=== PATIENT | male | born 1975 | race Caucasian/White ===

== ENCOUNTER 2017-02-03 08:13 | Inpatient (IN) | payer OTHER ==
[~2017-02-03] VITALS: Ht 180.3 cm; Wt 93.0 kg
[2017-02-04] VITALS (7 sets, daily range): BP systolic 122–155; BP diastolic 72–98
--- NOTE | 2017-02-04 00:15 | NUR ---
Pre-Assessment Note: Pt seen at [facility] intake office. Pt is a 41 year old male, AOx4 without s/s of acute distress noted. BP: 139/82, HR: 98, T: 98.1. RR: 20, SpO2 98%, Pain 0/10. Pt stated he came from [place]. Pt reported that he presented to [facility] to detox from alcohol dependence. Explained rules and regulations of the unit. Full assessment to be done when pt arrives upstairs.
[2017-02-04] MEDS ORDERED: DICYCLOMINE HCL 20 MG TABLET PO PRN (00:30)
[2017-02-04] MEDS ORDERED: ONDANSETRON 4 MG/2 ML VIAL IM PRN (00:30)
[2017-02-04] MEDS ORDERED: MAGNESIUM HYDROXIDE 30 ML LIQUID UDC PO PRN (00:30)
[2017-02-04] MEDS ORDERED: THIAMINE HCL 200 MG/2 ML VIAL IM ONE (00:30)
[2017-02-04] MEDS ORDERED: LORAZEPAM 1 MG TABLET PO PRN ×2 (00:30)
[2017-02-04] MEDS ORDERED: HYDROXYZINE PAMOATE 25 MG CAPSULE PO PRN (00:30)
[2017-02-04] MEDS ORDERED: ONDANSETRON ODT 4 MG TAB.RAPDIS SL PRN (00:30)
[2017-02-04] MEDS ORDERED: diphenhydrAMINE 50 MG CAPSULE PO PRN (00:30)
[2017-02-04] MEDS ORDERED: LOPERAMIDE HCL 2 MG CAPSULE PO PRN ×2 (00:30)
[2017-02-04] MEDS ORDERED: LORAZEPAM 2 MG/1 ML VIAL IM PRN (00:30)
--- NOTE | 2017-02-04 00:30 | NUR ---
Admission Note: Pt is a 41 year old male admitted under the care of Dr. Wynne. Pt is AOx4 without s/s of acute distress. Pt denies any pain/discomfort at this time. Respirations even and unlabored. Bowel sounds active x4 quadrants. Skin clean and intact. Pt reported NKDA and NKFA. Pt following regular diet at home. Pt reported current ETOH use and dependence: Pt drinks 1 bottle of vodka daily or 3x 12-pack of beer daily if vodka is not available for the past week. Pt last drank 3 beers 2 days ago. Pt stated he was recently admitted in the ER for intoxication and received IV fluids and Ativan 3 days ago. Pt also takes prescribed Ativan 1mg BID for the past 2 weeks. Pt last used Ativan on 02/03/17. Initial CIWA assessment is 7 and has mild symptoms of ETOH withdrawals. Pt verbalized that he is in treatment because he wants to stop drinking. Pt stated that his motivation for treatment is for himself. 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 Pt smokes a pack of cigarettes daily. Smoking Cessation initiated. Pt reported hx of anxiety, depression, bipolar-depressive disorder, sinus infection, and hx of sx on appendix, ankle, and tonsil. Pt stated that he had been to a detox facility in [place] but unable to remember date or specific location. Pt reported taking home medications: Zyrtec for allergy, Zoloft for depression, Bactrim for sinus infection, and Ativan for anxiety. Awaiting MD for medication reconciliation. Family hx of ETOH abuse on mother and father. Pt requesting PNA and Flu vaccine and consented to HIV testing. Educated pt about current plan of care and verbalized support for pt. Encouraged pt to verbalize feelings. Bed in lowest position. Side rails up x2. Bed padded for safety. Pt denies any suicidal ideation at this time. All needs attended and met. Call light functioning and within reach. Will continue to monitor.
--- NOTE | 2017-02-04 01:22 | NUR ---
PRN Ativan: Pt noted with CIWA 7. Pt noted with anxiety/agitation with mild tremors. 1mg Ativan PRN given as ordered. Will continue to monitor.
[2017-02-04] MEDS ORDERED: LORAZEPAM 1 MG TABLET ONE (01:33)
[2017-02-04] MEDS ORDERED: ONDA4TAB10 PO (01:34)
[2017-02-04] MEDS ORDERED: LORA1TAB PO (01:34)
[2017-02-04] MEDS ORDERED: FLUT16SP BNOSTRILS (01:34)
[2017-02-04] MEDS ORDERED: SERT50TA PO (01:34)
[2017-02-04] MEDS ORDERED: OXYM30MI NS (01:34)
[2017-02-04] MEDS ORDERED: TETR-62 OP (01:34)
[2017-02-04 01:38] LABS: BASOPHILS # (AUTO) 0.1 K/uL (0.0-8.0); EOSINOPHILS # (AUTO) 0.2 K/uL (0.0-0.7); EOSINOPHILS % (AUTO) 1.4 % (0.0-7.0); HEMATOCRIT 41.4 % (36.7-47.1); HEMOGLOBIN 14.3 g/dL (12.5-16.3); LYMPHOCYTES # (AUTO) 3.7 K/uL (20.0-40.0); LYMPHOCYTES % (AUTO) 29.4 % (20.5-51.5); MEAN CORPUSCULAR HEMOGLOBIN 32.2 uug (23.8-33.4); MEAN CORPUSCULAR HGB CONC 35 g/dL (32.5-36.3); MEAN CORPUSCULAR VOLUME 93.2 fL (73.0-96.2); MONOCYTES # (AUTO) 1.2 K/uL (2.0-10.0); MONOCYTES % (AUTO) 9.3 % (0.0-11.0); NEUTROPHILS # (AUTO) 7.4 K/uL (1.8-8.9); NEUTROPHILS % (AUTO) 58.9 % (38.5-71.5); PLATELET COUNT (AUTO) 267 K/uL (152-348); RED BLOOD CELL COUNT(AUTO) 4.45 MIL/uL (4.06-5.63); WHITE BLOOD COUNT (AUTO) 12.6 K/uL (3.6-10.2)
[2017-02-04 01:38] LABS: *AMPHETAMINE, URINE NEGATIVE (NEGATIVE); *BARBITURATE, URINE NEGATIVE (NEGATIVE); *CANNABINOID, URINE NEGATIVE (NEGATIVE); *COCCAINE, URINE NEGATIVE (NEGATIVE); *OPIATE, URINE NEGATIVE (NEGATIVE); *PHENCYCLIDINE SCREEN,URINE NEGATIVE (NEGATIVE)
[2017-02-04] MEDS ORDERED: SULF1TAB48 PO (01:54)
[2017-02-04] MEDS ORDERED: CETI1TAB9 PO (01:54)
--- NOTE | 2017-02-04 02:30 | NUR ---
Ativan Reassessment: Pt in bed with eyes closed. Respirations even and unlabored. Unable to reassess CIWA. Will continue to monitor.
[2017-02-04 02:31] LABS: ETHANOL < 3 MG/DL (0-0)
[2017-02-04 03:14] LABS: ALANINE AMINOTRANSFERASE 40 U/L (16-63); ALKALINE PHOSPHATASE 81 U/L (50-136); AMYLASE 82 U/L (25-115); ASPARTATE AMINOTRANSFERASE 30 U/L (15-37); BILIRUBIN,TOTAL 0.2 mg/dL (0.2-1.0); CARBON DIOXIDE 28 mmol/L (21-32); CHLORIDE 100 mmol/L (98-107); CREATININE 0.8 mg/dL (0.6-1.3); GLUCOSE 98 mg/dL (74-106); LIPASE 209 U/L (73-393); MAGNESIUM 1.8 mg/dL (1.8-2.4); POTASSIUM 3.7 mmol/L (3.5-5.1); TOTAL PROTEIN, SERUM 7.4 g/dL (6.4-8.2); UREA NITROGEN, BLOOD 11 mg/dL (7-18)
[2017-02-04 03:28] LABS: THYROID STIMULATING HORMONE 0.907 mIU/mL (0.358-3.740)
--- NOTE | 2017-02-04 07:07 | NUR ---
End of Shift Note: Pt is 41M, admitted for ETOH/Benzo dependence on 02/04/17. Pt is AOx4 without s/s of acute distress noted. Pt is full code, on regular diet, and on fall/seizure precautions. Pt noted with NKA. Pt reports hx of anxiety, depression, bipolar-depressive disorder, sinus infection, and hx of sx on appendix, ankle, and tonsil. Pt currently on Ativan PRN to manage withdrawal symptoms. Pt is compliant with plan of care. Pt slept for 4 hours. Respirations even and unlabored. Last CIWA score was 4 at 0400. No N/V noted during the shift. Fall and Sz precautions observed. Bed in lowest position. Side rails up x2. Call light functioning and within reach. All needs attended and met. Will endorse to day shift nurse.
--- NOTE | 2017-02-04 07:30 | NUR ---
START OF SHIFT Pt 41 y/o male admitted for etoh dependence. Pt receive room on bed awake. Pt alert and oriented to name, place, and time. Perrla. Skin warm and slightly moist to touch. Respirations even and unlabored. Bilateral hand tremors noted slightly. It was reported that pt slept for 4 hours last night. Bed on lowest position with side rails x2 up for safety. Call light within reach. No distress noted at this time.
[2017-02-04] MEDS ORDERED: INFLUENZA VACCINE 2017-2018 0.5 ML DISP.SYRIN IM ONE ×2 (08:45→10:00)
[2017-02-04] MEDS: MULTIVITAMINS,THERAPEUTIC TABLET PO SCH (08:49)
[2017-02-04] MEDS: THIAMINE HCL 100 MG TABLET PO SCH (08:49)
[2017-02-04] MEDS: FOLIC ACID 1 MG TABLET PO SCH (08:49)
[2017-02-04] MEDS ORDERED: LORAZEPAM 1 MG TABLET PO SCH (09:00)
[2017-02-04] MEDS ORDERED: PNEUMOCOCCAL 23-VAL P-SAC VAC 0.5 ML VIAL IM ONE ×2 (09:00→10:00)
[2017-02-04] MEDS: FLUTICASONE PROP NASAL SPRAY 16 GM BOTTLE NS SCH (09:28)
[2017-02-04] MEDS ORDERED: AZITHROMYCIN 250 MG TABLET PO ONE (13:00)
[2017-02-04] MEDS ORDERED: NICOTINE 14 MG/24HR PATCH TD PRN (14:00)
[2017-02-04] MEDS: LORAZEPAM 1 MG TABLET PO SCH ×2 (14:16→21:10)
--- NOTE | 2017-02-04 15:58 | NUR ---
Therapist prompted client about group times. Client stated he wants to rest today.
--- NOTE | 2017-02-04 18:37 | NUR ---
END OF SHIFT Pt 41 y/o male admitted for eoth/ benzo dependence. Pt alert and oriented to name, place, and time. Perrla. Skin warm and slightly moist to touch. Respirations even and unlabored. No hand tremors noted. Pt observed mostly isolative to room this morning. Pt attended group activity. Pt was seen by MD today. Pt medication compliant and tolerated well. No ASE noted. Bed on lowest position with side rails x2 up for safety. Call light within reach. No distress noted at this time.
--- NOTE | 2017-02-04 19:10 | NUR ---
Start of shift note Received report from day shift nurse. Pt is a 41 yo male, A+Ox4, presenting to [facility] for ETOH/Benzo dependence. Pt has NKA, is o full code status, and on Regular diet. Pt is on fall and Seizure precautions. Pt has HX of Anxiety, Depression, Sinus Infection, Appendectomy, ankle SX, and Tonsillectomy. Pt is on 4 day Ativan taper, tolerated well. No s/s of distress noted at this time. Respirations even and unlabored. Will continue to monitor.
[2017-02-04] MEDS: SERTRALINE HCL 50 MG TABLET PO SCH (21:10)
[2017-02-04] MEDS: MAG HYDROX/AL HYDROX/SIMETH 30 ML LIQUID UDC PO PRN (21:13)
--- NOTE | 2017-02-04 21:13 | NUR ---
PRN Maalox Pt c/o heartburn and requested for PRN Maalox. Medication given and tolerated well. Will reassess within 1 HR. Will continue to monitor.
--- NOTE | 2017-02-04 22:10 | NUR ---
PRN Maalox Reassessment Medication effective. Pt expresses reduction in heartburn. No s/s of ASE/distress noted at this time. Respirations even and unlabored. Will continue to monitor.
[2017-02-05 00:40] VITALS: BP 144/91
[2017-02-05 04:40] VITALS: BP 138/84
[2017-02-05 06:06] LABS: HEPATITIS B SURFACE AG Negative (Negative)
--- NOTE | 2017-02-05 07:00 | NUR ---
End of shift note Pt is a 41 yo male, A+Ox4, presenting to [facility] for ETOH/Benzo dependence. Pt has NKA, is o full code status, and on Regular diet. Pt is on fall and Seizure precautions. Pt has HX of Anxiety, Depression, Sinus Infection, Appendectomy, ankle SX, and Tonsillectomy. Pt is on 4 day Ativan taper, tolerated well. Pt was given PRN Maalox @2113. Pt slept for a total of 9 HRS. Last CIWA: 3 @0400. No s/s of distress noted at this time. Respirations even and unlabored. Will endorse to day shift nurse.
--- NOTE | 2017-02-05 07:28 | NUR ---
START OF SHIFT Pt 41 y/o male admitted for etoh dependence. Pt receive room with eyes closed resting, but easily arousable to name. Pt alert and oriented to name, place, and time. Perrla. Skin warm and slightly moist to touch. Respirations even and unlabored. Bilateral hand tremors noted slightly. It was reported that pt slept for 9 hours last night. Bed on lowest position with side rails x2 up for safety. Call light within reach. No distress noted at this time.
[2017-02-05 08:00] VITALS: BP 139/91
[2017-02-05] MEDS: AZITHROMYCIN 250 MG TABLET PO SCH (08:48)
[2017-02-05] MEDS: LORAZEPAM 1 MG TABLET PO SCH ×3 (08:48→20:16)
[2017-02-05] MEDS: THIAMINE HCL 100 MG TABLET PO SCH (08:48)
[2017-02-05] MEDS: MULTIVITAMINS,THERAPEUTIC TABLET PO SCH (08:48)
[2017-02-05] MEDS: FOLIC ACID 1 MG TABLET PO SCH (08:48)
[2017-02-05] MEDS: FLUTICASONE PROP NASAL SPRAY 16 GM BOTTLE NS SCH (08:49)
[2017-02-05] MEDS ORDERED: AZITHROMYCIN 250 MG TABLET PO SCH (09:00)
[2017-02-05] MEDS ORDERED: LORAZEPAM 1 MG TABLET PO SCH (09:00)
[2017-02-05] MEDS ORDERED: TUBERCULIN,PURIF.PROT.DERIV. 5 TU/0.1 ML TEST ID ONE (09:00)
--- NOTE | 2017-02-05 09:00 | NUR ---
PPD Pt refused ppd.
[2017-02-05 12:00] VITALS: BP 124/72
[2017-02-05] MEDS: MAG HYDROX/AL HYDROX/SIMETH 30 ML LIQUID UDC PO PRN (15:27)
--- NOTE | 2017-02-05 15:28 | NUR ---
PRN Pt states has heartburn. Maloox po prn per MD order given and tolerated well.
[2017-02-05 16:00] VITALS: BP 141/80
--- NOTE | 2017-02-05 16:28 | NUR ---
KAMARI MCCARTY Pt denies any heartburn at this time.
[2017-02-05] MEDS: MIRALAX 17 GM POWD.PACK PO PRN (18:32)
--- NOTE | 2017-02-05 18:34 | NUR ---
PRN pt states is constipated. Miralaxx prn per MD order given and tolerated well.
[2017-02-05 20:00] VITALS: BP 137/87
--- NOTE | 2017-02-05 20:00 | NUR ---
Start of Shift Pt is a 41 year old male admitted for ETOH/Benzo dependence, placed on 4 day Ativan taper. Pt reported consuming Vodka 1 bottle or beer 3 x12 pack/beer and Ativan 2mg/daily. PMH: anxiety, depression, bipolar depressive, sinus infection and appendix removal. NKA, regular diet fall/seizure precautions and full code. Upon assessment, pt reports body/joint aches, skin is noted with be flushed/clammy, reports feeling anxious, Respirations even/unlabored, denies SOB/chest pain, denies n/v/d, medications due. Safety measures in place, call light within reach, side rails up x2, bed locked and in low positions. Will continue to monitor.
[2017-02-05] MEDS: SERTRALINE HCL 50 MG TABLET PO SCH (20:16)
--- NOTE | 2017-02-05 22:02 | NUR ---
PRN Administration Pt requests aid for sleep. Benadryl 50jmg PRN administered. Safety measures in place, will continue to monitor.
--- NOTE | 2017-02-05 23:02 | NUR ---
PRN Reassessment Upon reassessment, pt is in bed, eyes closed, resting with respirations even/unlabored. Safety measures in place, will continue to monitor.
[2017-02-06] VITALS: BP 135/84
--- NOTE | 2017-02-06 04:00 | NUR ---
MARIVELWA deferred d/t sleeping, to assess while pt is awake as ordered. Pt refused to be woken up for 0[address] measures in [address], will continue to monitor.
--- NOTE | 2017-02-06 07:10 | NUR ---
End of Shift Pt is a 41 year old male admitted for ETOH/Benzo dependence, placed on 4 day Ativan taper. Pt reported consuming Vodka 1 bottle or beer 3 x12 pack/beer and Ativan 2mg/daily. PMH: anxiety, depression, bipolar depressive, sinus infection and appendix removal. NKA, regular diet fall/seizure precautions and full code. During shift, pt reported body/joint aches, skin noted with be flushed/clammy, reported feeling anxious scheduled taper medications administered, CIWA 2. Benadryl 50mg PRN administered for sleep. Pt slept for 8 hours, intake of 1700 ml PO, voids x1 and stool x0. Safety measures in place, call light within reach, side rails up x2, bed locked and in low positions. Endorsed to day shift nurse.
[2017-02-06 08:00] VITALS: BP 131/81
--- NOTE | 2017-02-06 08:00 | NUR ---
Start of Shift Notes: Received patient in his room. Alert and verbally responsive. Oriented x 4 Able to make his needs known. Respirations even and unlabored. No SOB noted. Skin warm and dry to touch. Abdomen soft and non-distended with (+) BS in all 4 quadrants. No complains of N/V/D or abdominal discomfort noted. Bladder non-distended. Voids independently. Ambulatory ad selma with steady gait. Patient is a 41 year old male admitted for ETOH and BZO dependence who was placed on a 4-day Ativan taper as ordered. No adverse reactions noted. Has past medical hx of anxiety, depression, sinus infection, bipolar disorder and appendectomy. NKA. FULL CODR. Regular diet. On fall and seizure precautions. Educated patient on his current plan of care for the day and his medication regimen. Encouraged oral fluid intake and encouraged group participation to learn new skills to prevent relapse. Will continue to monitor.
[2017-02-06] MEDS: MULTIVITAMINS,THERAPEUTIC TABLET PO SCH (08:59)
[2017-02-06] MEDS: AZITHROMYCIN 250 MG TABLET PO SCH (08:59)
[2017-02-06] MEDS: THIAMINE HCL 100 MG TABLET PO SCH (08:59)
[2017-02-06] MEDS: LORAZEPAM 1 MG TABLET PO SCH ×2 (08:59→20:37)
[2017-02-06] MEDS: FOLIC ACID 1 MG TABLET PO SCH (08:59)
[2017-02-06] MEDS: FLUTICASONE PROP NASAL SPRAY 16 GM BOTTLE NS SCH (09:00)
[2017-02-06] MEDS ORDERED: LORAZEPAM 1 MG TABLET PO SCH (09:00)
[2017-02-06 12:00] VITALS: BP 122/87
[2017-02-06] MEDS ORDERED: METHYL SALICYLATE/MENTHOL CREAM 28 GM TUBE TOP PRN (13:45)
[2017-02-06] MEDS: MIRALAX 17 GM POWD.PACK PO PRN (17:00)
--- NOTE | 2017-02-06 17:00 | NUR ---
Miralax 17 gm PO given: Patient noted with complain of constipation. Mild abdominal discomfort noted. Medicated patient with Miralax 17 GM po as ordered. Will monitor for effectiveness.
[2017-02-06 17:55] VITALS: BP 128/88
--- NOTE | 2017-02-06 18:00 | NUR ---
Re-assessment: Miralax Per patient, PRN Miralax was effective in relieving constipation. Denies any abdominal discomfort at this time. Had x 2 episodes of soft formed stools.
--- NOTE | 2017-02-06 18:58 | NUR ---
End of Shift Notes: Patient continues to be on 4-day Ativan taper as ordered. No adverse reactions noted. Patient is tolerating taper well. No adverse reactions noted. VS monitored closely. No significant abnormalities noted. Withdrawal symptoms were closely monitored. Initial CIWA 4, patient presented with mild anxiety and sweats. Denies S/I or H/I. No AV hallucinations noted. Last CIWA 3. PRN MIralax given at 1700 with help after 1 hour. Per patient, Ativan has been effective in reducing patient's withdrawal symptoms. Requires encouragement to attend group and activities. All needs met and attended. Will continue to monitor.
[2017-02-06 20:00] VITALS: BP 120/77
--- NOTE | 2017-02-06 20:00 | NUR ---
Start of Shift Pt is a 41 year old male admitted for ETOH/Benzo dependence, placed on 4 day Ativan taper. Pt reported consuming Vodka 1 bottle or beer 3 x12 pack/beer and Ativan 2mg/daily. PMH: anxiety, depression, bipolar depressive, sinus infection and appendix removal. NKA, regular diet fall/seizure precautions and full code. Upon assessment, pt reports feeling anxious, with mild body aches, Respirations even/unlabored, denies SOB/chest pain, denies n/v/d, skin is noted with moderate sweat. Safety measures in place, call light within reach, side rails up x2, bed locked and in low positions. Will continue to monitor.
[2017-02-06] MEDS: SERTRALINE HCL 50 MG TABLET PO SCH (20:37)
[2017-02-06] MEDS: NYSTATIN POWDER 15 GM BOTTLE TOP SCH (20:38)
[2017-02-07] VITALS: BP 131/87
--- NOTE | 2017-02-07 07:00 | NUR ---
End of Shift Pt is a 41 year old male admitted for ETOH/Benzo dependence, placed on 4 day Ativan taper. Pt reported consuming Vodka 1 bottle or beer 3 x12 pack/beer and Ativan 2mg/daily. PMH: anxiety, depression, bipolar depressive, sinus infection and appendix removal. NKA, regular diet fall/seizure precautions and full code. During shift, pt reported feeling anxious, with mild body aches scheduled taper medications administered, effective in management of s/s of withdrawal as reported per pt, CIWA 3. No PRN medications administered during shift. Pt slept for 7 hours, intake of 1605 ml PO, voids x4 and stool x3. Safety measures in place, call light within reach, side rails up x2, bed locked and in low positions. Endorsed to day shift nurse.
--- NOTE | 2017-02-07 07:30 | NUR ---
Start of shift Received report on Patient , 41 yr old male admitted 02/04/17 for ETOH and ativan dependence with a history of bipolar.Received pt awake , sitting on bed eating. Phani is on a 4 day taper with anticipated discharge date of 02/08/17. Currently C/O nasal stuffiness, L side abdominal pain possibly caused by exertion with coughing and rash on groin which is being treated with Nyastin powder.Last CIWA score of 3 reported @0400 by manager night. Phani slept 7 hrs last night. Alert and oriented to name , place and time, respirations unlabored , skin warm and dry, no hand tremors noted. Safety measures in place, bed in lowest and locked position, 2 side rails up. Will continue to monitor throughout shift.
[2017-02-07 08:00] VITALS: BP 114/79
[2017-02-07] MEDS: AZITHROMYCIN 250 MG TABLET PO SCH (08:58)
[2017-02-07] MEDS: FOLIC ACID 1 MG TABLET PO SCH (08:58)
[2017-02-07] MEDS: THIAMINE HCL 100 MG TABLET PO SCH (08:58)
[2017-02-07] MEDS: MULTIVITAMINS,THERAPEUTIC TABLET PO SCH (08:58)
[2017-02-07] MEDS: FLUTICASONE PROP NASAL SPRAY 16 GM BOTTLE NS SCH (08:59)
[2017-02-07] MEDS: NYSTATIN POWDER 15 GM BOTTLE TOP SCH ×3 (08:59→20:36)
[2017-02-07] MEDS ORDERED: LORAZEPAM 1 MG TABLET PO SCH ×2 (09:00)
--- NOTE | 2017-02-07 09:58 | NUR ---
Therapist prompted client to attend group today. Client agreed to attend, if he is feeling well enough as he has a cold.
[2017-02-07] MEDS: ACETAMINOPHEN 325 MG TABLET PO PRN ×2 (11:43→17:51)
--- NOTE | 2017-02-07 11:47 | NUR ---
PRN 650mg tylenol PO given for temp >100F
[2017-02-07 12:00] VITALS: BP 128/71
[2017-02-07] MEDS ORDERED: ALBU8.5H8 INH (12:20)
[2017-02-07] MEDS ORDERED: NICO4GUM38 BC (12:20)
[2017-02-07] MEDS ORDERED: DIPH50CA37 PO (12:20)
[2017-02-07] MEDS ORDERED: PATIENT MAY USE OWN MED- MD OK NS PRN (12:30)
[2017-02-07] MEDS ORDERED: PATIENT MAY USE OWN MED- MD OK PO PRN (12:30)
--- NOTE | 2017-02-07 12:47 | NUR ---
PRN EVAL TEMP DECREASED TO 99.5F
[2017-02-07] MEDS ORDERED: CETIRIZINE HCL 10 MG TABLET PO PRN (13:00)
[2017-02-07] MEDS: BENZOCAINE/MENTH/CETYLPYRD LOZENGE MM PRN (13:16)
[2017-02-07] MEDS: GUAIFENESIN SUGAR FREE 100 MG/5 ML UDC PO PRN (13:16)
--- NOTE | 2017-02-07 13:19 | NUR ---
PRN Pt with c/o sore throat. Cepacol prn per MD order given and tolerated well.
--- NOTE | 2017-02-07 13:19 | NUR ---
PRN Pt with c/o cough. robitussin prn per MD order given and tolerated well.
--- NOTE | 2017-02-07 14:19 | NUR ---
PRN EVAL Pt with no c/o sore throat at this time.
--- NOTE | 2017-02-07 14:19 | NUR ---
PRN EVAL Pt with no cough noted at this time.
[2017-02-07 16:00] VITALS: BP 124/63
--- NOTE | 2017-02-07 16:28 | NUR ---
END OF SHIFT PATIENT FINISHED 4 DAY ATIVAN TAPER ORDERED. VITAL SIGNS AND WITHDRAWAL SIGNS MONITORED CLOSELY. LATEST CIWA OF 1 @ 1600. PATIENT COMPLAINS OF COLD LIKE SYMPTOMS, USING FLONASE AND CONTINUING ON Z PACK ANTIBIOTICS. 1147 650 MG OF TYLENOL GIVEN FOR TEMP OF 102F, TEMP DECREASED TO 99.5, WILL CONTINUE TO MONITOR. ORDER OBTAINED FOR ROBITUSSIN AND CEPACOL THROAT LOZENGES. PREPARING FOR DISCHARGE IN THE AM. CONTINUE PLAN OF CARE. Addendum: 02/07/17 at 1737 by SACHA PRICE RN INCORRECT TIME
[2017-02-07] MEDS: IBUPROFEN 400 MG TABLET PO PRN (17:35)
--- NOTE | 2017-02-07 17:37 | NUR ---
PRN Pt with c/o generalized body pain 06/26. Motrin po prn per MD order given and tolerated well.
--- NOTE | 2017-02-07 17:51 | NUR ---
LABS MD AWARE OF TEMPERATURE 102 WITH NEW ORDERS FOR BMP, CBC, STREP, INFLUENZA, CXR AND BLOOD CX. NOTED AND CARRIED OUT.
--- NOTE | 2017-02-07 17:51 | NUR ---
PRN TYLENOL 650MG GIVEN FOR TEMP OF 102F
[2017-02-07 18:23] LABS: BASOPHILS % (AUTO) 0.5 % (0.0-2.0); EOSINOPHILS # (AUTO) 0.1 K/uL (0.0-0.7); EOSINOPHILS % (AUTO) 1.1 % (0.0-7.0); HEMATOCRIT 39.8 % (36.7-47.1); HEMOGLOBIN 13.8 g/dL (12.5-16.3); LYMPHOCYTES # (AUTO) 0.8 K/uL (20.0-40.0); LYMPHOCYTES % (AUTO) 7.9 % (20.5-51.5); MEAN CORPUSCULAR HEMOGLOBIN 32.7 uug (23.8-33.4); MEAN CORPUSCULAR HGB CONC 35 g/dL (32.5-36.3); MEAN CORPUSCULAR VOLUME 94.5 fL (73.0-96.2); MONOCYTES # (AUTO) 1.4 K/uL (2.0-10.0); MONOCYTES % (AUTO) 14.4 % (0.0-11.0); NEUTROPHILS # (AUTO) 7.6 K/uL (1.8-8.9); NEUTROPHILS % (AUTO) 76.1 % (38.5-71.5); PLATELET COUNT (AUTO) 235 K/uL (152-348); RED BLOOD CELL COUNT(AUTO) 4.22 MIL/uL (4.06-5.63)
--- NOTE | 2017-02-07 18:37 | NUR ---
PRN BIBIANA Pt states pain 03/29.
--- NOTE | 2017-02-07 18:51 | NUR ---
KAMARI MCCARTY Pt with vekc=068.7. aware.
--- NOTE | 2017-02-07 19:30 | NUR ---
end of shift PATIENT FINISHED 4 DAY ATIVAN TAPER ORDERED. VITAL SIGNS AND WITHDRAWAL SIGNS MONITORED CLOSELY. LATEST CIWA OF 1 @ 1600. PATIENT COMPLAINS OF COLD LIKE SYMPTOMS, USING FLONASE AND CONTINUING ON Z PACK ANTIBIOTICS. 1147 650 MG OF TYLENOL GIVEN FOR TEMP OF 102F, TEMP DECREASED TO 99.5, WILL CONTINUE TO MONITOR. ORDER OBTAINED FOR ROBITUSSIN AND CEPACOL THROAT LOZENGES. PREPARING FOR DISCHARGE IN THE AM. CONTINUE PLAN OF CARE.
[2017-02-07 20:00] VITALS: BP 121/68
--- NOTE | 2017-02-07 20:00 | NUR ---
Start of Shift Pt is a 41 year old male admitted for ETOH/Benzo dependence, completed 4 day Ativan taper. Pt reported consuming Vodka 1 bottle or beer 3 x12 pack/beer and Ativan 2mg/daily. PMH: anxiety, depression, bipolar depressive, sinus infection and appendix removal. NKA, regular diet fall/seizure precautions and full code. Upon assessment, pt presents with cold like symptoms, hot/cold with sweats and cough. Pt tested positive for influenza and is on Zithromax and Tamiflu. Denies SOB/chest pain, on contact precautions. Safety measures in place, call light within reach, side rails up x2, bed locked and in low positions. Will continue to monitor.
[2017-02-07] MEDS: SERTRALINE HCL 50 MG TABLET PO SCH (20:36)
[2017-02-07] MEDS: OSELTAMIVIR PHOSPHATE 75 MG CAPSULE PO SCH (20:36)
[2017-02-08] VITALS: BP 118/73
--- NOTE | 2017-02-08 | NUR ---
CIWA deferred d/t sleeping, to assess while pt is awake as ordered. BP 118/73, pulse 85, resp 16, SpO2 98% room air, temp 98.[address], will continue to monitor.
[2017-02-08] MEDS: NICOTINE POLACRILEX 4 MG GUM-PK OF TEN BC PRN ×2 (01:20→15:18)
--- NOTE | 2017-02-08 01:20 | NUR ---
Nicotine Gum 4mg PRN administered for nicotine cravings. Will continue to monitor.
[2017-02-08 04:00] VITALS: BP 124/80
[2017-02-08] MEDS: GUAIFENESIN SUGAR FREE 100 MG/5 ML UDC PO PRN ×3 (04:19→23:22)
[2017-02-08] MEDS: ACETAMINOPHEN 325 MG TABLET PO PRN ×3 (04:28→23:22)
--- NOTE | 2017-02-08 04:28 | NUR ---
PRN Administration Pt presents with a cough, skin is clammy/flushed, temp 101.3. Robitussin 10ml PRN and Tylenol 650mg PRN administered. Safety measures in place, will continue to monitor.
--- NOTE | 2017-02-08 05:28 | NUR ---
PRN Reassessment Pt reports relief in cough. Temp decreased to 98.5 Pt is in bed, safety measures in place, will continue to monitor.
--- NOTE | 2017-02-08 07:00 | NUR ---
End of Shift Pt is a 41 year old male admitted for ETOH/Benzo dependence, completed 4 day Ativan taper. Pt reported consuming Vodka 1 bottle or beer 3 x12 pack/beer and Ativan 2mg/daily. PMH: anxiety, depression, bipolar depressive, sinus infection and appendix removal. NKA, regular diet fall/seizure precautions and full code. During shift, Pt presented with cold like symptoms, hot/cold with sweats and cough. Pt tested positive for influenza and is on Zithromax and Tamiflu. Nicotine Gum 4mg PRN administered for nicotine cravings. Robitussin and Tylenol 650mg PRN administered for cough and elevated temperature. Latest VS BP 124/80, Pulse 85, resp 16, SpO2 98 and temp 98.5. Pt slept for 8 hours, intake of 1500 ml PO, voids x3 and stool x1. Latest CIWA 2. Safety measures in place, call light within reach, side rails up x2, bed locked and in low position. Endorsed to day shift nurse.
--- NOTE | 2017-02-08 07:28 | NUR ---
Start of Shift Notes: Received patient in his room. Alert and verbally responsive. Oriented x 4 Able to make his needs known. Respirations even and unlabored. No SOB noted. Skin warm and dry to touch. Abdomen soft and non-distended with (+) BS in all 4 quadrants. No complains of N/V/D or abdominal discomfort noted. Bladder non-distended. Voids independently. Ambulatory ad selma with steady gait. Patient is a 41 year old male admitted for ETOH and BZO dependence who was placed on a 4-day Ativan taper as ordered and completed. No adverse reactions noted. Has past medical hx of anxiety, depression, sinus infection, bipolar disorder and appendectomy. NKA. FULL CODR. Regular diet. On fall and seizure precautions. Educated patient on his current plan of care for the day and his medication regimen. On isolation due to influenza. Education provided. Encouraged oral fluid intake and encouraged group participation to learn new skills to prevent relapse. Will continue to monitor.
[2017-02-08 08:00] VITALS: BP 132/81
[2017-02-08] MEDS: BENZOCAINE/MENTH/CETYLPYRD LOZENGE MM PRN ×2 (08:14→20:34)
--- NOTE | 2017-02-08 08:14 | NUR ---
Motrin 400mg/Cepacol PO given Patient complained of 5/10 sore throat. Able to tolerate PO intake. Cepacol Po and Motrin 400 mg PO given as ordered. Will monitor for effectiveness.
[2017-02-08] MEDS: AZITHROMYCIN 250 MG TABLET PO SCH (08:15)
[2017-02-08] MEDS: MULTIVITAMINS,THERAPEUTIC TABLET PO SCH (08:15)
[2017-02-08] MEDS: THIAMINE HCL 100 MG TABLET PO SCH (08:15)
[2017-02-08] MEDS: FOLIC ACID 1 MG TABLET PO SCH (08:15)
[2017-02-08] MEDS: IBUPROFEN 400 MG TABLET PO PRN ×2 (08:15→18:07)
[2017-02-08] MEDS: OSELTAMIVIR PHOSPHATE 75 MG CAPSULE PO SCH ×2 (08:15→20:35)
[2017-02-08] MEDS: FLUTICASONE PROP NASAL SPRAY 16 GM BOTTLE NS SCH (08:19)
[2017-02-08] MEDS: NYSTATIN POWDER 15 GM BOTTLE TOP SCH ×2 (08:20→20:35)
[2017-02-08] MEDS ORDERED: LORAZEPAM 1 MG TABLET PO SCH (09:00)
--- NOTE | 2017-02-08 09:14 | NUR ---
Re-assessment: Per patient, PRN Motrin and Cepacol was effective in reducing sore throat.
--- NOTE | 2017-02-08 09:22 | NUR ---
Motrin 400mg/Cepacol PO given Patient complained of 5/10 sore throat. Able to tolerate PO intake. Cepacol Po and Motrin 400 mg PO given as ordered. Will monitor for effectiveness. Addendum: 02/08/17 at 0923 by PRIETO LEONE LVN Error in charting. Documented wrong time.
[2017-02-08 12:00] VITALS: BP 131/70
[2017-02-08] MEDS: CLONIDINE HCL 0.1 MG TABLET PO PRN (15:18)
--- NOTE | 2017-02-08 15:20 | NUR ---
Clonidine 0.1mg/Robiitussin/Nicotine gum given: Patient noted with increase in anxiety being in isolation. Provided patient with therapeutic communication with no help. Also noted with productive cough and request for Nicotine gum for nicotine cravings. Afebrile. Medicated patient with Clonidine 0.1mg PO, Robitussin and Nicotine gum as ordered. Will monitor for effectiveness.
[2017-02-08 16:00] VITALS: BP 105/74
[2017-02-08] MEDS ORDERED: OSEL75CA PO (16:17)
--- NOTE | 2017-02-08 16:24 | NUR ---
New orders; Patient's isolation order changed to droplet precautions.
--- NOTE | 2017-02-08 17:14 | NUR ---
Tylenol 650 mg PO given: Patient noted with temp 101.1. Cooling measures applied, Medicated patient with Tylenol 650 mg PO as ordered. Will monitor for effectiveness.
[2017-02-08] MEDS ORDERED: LEVO750T21 PO (17:57)
--- NOTE | 2017-02-08 18:00 | NUR ---
Motrin 400 mg PO/Nasal spray given: Patient's temp 100, after giving Tylenol and cooling measures. Medicated patient with Motrin 400 mg PO and cooling measures. Requested Nasal spray at this time and provided. Will monitor for effectiveness.
[2017-02-08] MEDS: LEVOFLOXACIN 750 MG TABLET PO SCH (18:03)
[2017-02-08] MEDS: OXYMETAZOLINE NASAL 0.05% 15 ML SPRAY NS PRN (18:09)
--- NOTE | 2017-02-08 18:55 | NUR ---
End of Shift Notes: Patient will be discharging tomorrow. VS monitored closely. No significant abnormalities noted. Withdrawal symptoms were closely monitored. Initial CIWA 1, patient presented with mild anxiety. Denies S/I or H/I. No AV hallucinations noted. Last CIWA 1. On Z-pack, Levaquin and Tamiflu as ordered due to influenza. Medicated patient with Motrin 400 mg PO at 0814 and Cepacol for sore throat with help afte 1 hour. At 1520 PRN Clonidine, Nicotine gum and Robitussin was given at 1520 with help after 1 hour. PO Tylenol 650 mg given at 1714 due to elevated temp 101 with no help. Medicated patient with Motrin 400 mg PO after 1 hour and with cooling measures. Results pending. Patient continues to be on droplet precautions as ordered due to influenza. Encouraged patient to wear mask and often handwashing. All needs met and attended. Will continue to monitor.
--- NOTE | 2017-02-08 19:15 | NUR ---
Start of Shift Note: Patient is a 41 y.o male admitted on 02/04/17 for ETOH & Benzo dependence. Patient has PMHx of Anxiety, Depression, Bipolar disorder, Sinus infection & Hx of Appendicitis. Patient is on a regular diet with no known food and drug allergies. Full Code status. Fall & Seizure precaution noted. Skin noted to be intact. Patient completed his Ativan taper with no adverse reactions noted. Last CIWA is 1. Pateint received PRN Motrin, Cepacol, Robitussin, Clonidine, Nicotine during day shift. Patient is on isolation with droplet precaution due to influenza. Education provided. Patient is alert & oriented x4. No shortness of breath noted. Respiration even & unlabored. Abdomen soft & non-distended. No nausea noted. Patient complained of muscle pain on the abdomen d/t coughing & sore throat. Slight anxiety noted. No hand tremors noted. Patient denies any hallucinations. Safety precautions are in place. Bed locked in lowest position. Both side rails up. Call light within pts reach. Will continue to monitor patient.
[2017-02-08 20:00] VITALS: BP 128/70
--- NOTE | 2017-02-08 20:34 | NUR ---
PRN Cepacol Patient complained of sorethroat. PRN Cepacol administered as ordered. Will continue to monitor patient.
[2017-02-08] MEDS: SERTRALINE HCL 50 MG TABLET PO SCH (20:35)
--- NOTE | 2017-02-08 21:34 | NUR ---
PRN Reassessment PRN medication effective. Pt verbalized relief from sore throat after medication was received. Will continue to monitor patient.
--- NOTE | 2017-02-08 23:22 | NUR ---
PRN Tylenol & Robitussin. Patient complained of muscle pain in abdominal area d/t coughing. Pt also noted with productive cough. PRN Tylenol and Robitussin administered as ordered. Will continue to monitor patient.
[2017-02-09] VITALS: BP 118/74
--- NOTE | 2017-02-09 00:22 | NUR ---
PRN Reassessment Patient asleep in bed and appears comfortable. No facial grimacing noted. Pt also noted with decrease coughing. Will continue to monitor patient.
[2017-02-09 04:00] VITALS: BP 120/76
[2017-02-09] MEDS: IBUPROFEN 400 MG TABLET PO PRN ×4 (04:45→20:06)
[2017-02-09] MEDS: ACETAMINOPHEN 325 MG TABLET PO PRN ×3 (04:48→17:04)
--- NOTE | 2017-02-09 07:03 | NUR ---
End of Shift Note: Patient had an uneventful night. Patient completed his taper with no adverse reaction noted. Patient still on isolation with droplet precaution d/t influenza. Patient with no episode of hyperthermia on my shift. Patient remained compliant with medications. Closely monitor symptoms of withdrawal. Vitals monitored closely and noted within normal limits. CIWA 1 noted. Patient received PRN Motrin, Cepacol, Robitussin & Tylenol during my shift. Patient remained stable throughout my shift. Patient shows no s/s of distress. Patient still asleep in bed. Patient slept for a total of 7 hour. Fluid intake 855ml. Encourage pt to increase fluid intake. Voided 2x with no bowel movement. All needs attended & met. Safety measures in place. Will continue to monitor patient.
--- NOTE | 2017-02-09 07:35 | NUR ---
START OF SHIFT Received report from awake overnight counselor nurse. Pt is lying in bed resting. He is a 41 yo male admitted to [facility] on 02/04 for ETOH dependence. He is A&O and ambulatory. NKA, full code status, and on a regular diet. PHM of sinus infection, anxiety, depression, and bipolar. On admission he reported drinking vodka "1 bottle" or beer 3 x 12 pack per day. He also took Ativan 2 mg per day. Ativan taper complete. He is currently being treated for URI. Pt is afebrile. Skin is warm and dry. Respirations even and unlabored. He denies SOB. Fall and seizure precautions in place. Bed is down with call light in reach. Addendum: 02/09/17 at 1738 by LUIS ANTONIO SCHAFFER RN Pt is on isolation precautions for influenza.
[2017-02-09 08:00] VITALS: BP 106/67
[2017-02-09] MEDS: FLUTICASONE PROP NASAL SPRAY 16 GM BOTTLE NS SCH (08:51)
[2017-02-09] MEDS: THIAMINE HCL 100 MG TABLET PO SCH (08:52)
[2017-02-09] MEDS: MULTIVITAMINS,THERAPEUTIC TABLET PO SCH (08:52)
[2017-02-09] MEDS: FOLIC ACID 1 MG TABLET PO SCH (08:52)
[2017-02-09] MEDS: BENZOCAINE/MENTH/CETYLPYRD LOZENGE MM PRN ×2 (08:52→20:06)
[2017-02-09] MEDS: GUAIFENESIN SUGAR FREE 100 MG/5 ML UDC PO PRN ×2 (08:53→17:05)
--- NOTE | 2017-02-09 08:55 | NUR ---
PRN Motrin, Robitussin, Zyrtec, and Cepacol Lozenge Pt c/o mild cough, abdominal pain r/t coughing, nasal congestion and drainage, and sore throat. PRN Motrin, Robitussin, Zyrtec, and Cepacol Lozenge administered.
[2017-02-09] MEDS: NYSTATIN POWDER 15 GM BOTTLE TOP SCH (09:00)
--- NOTE | 2017-02-09 09:55 | NUR ---
PRN Motrin, Robitussin, Zyrtec, and Cepacol Lozenge PRN Motrin, Robitussin, Zyrtec, and Cepacol Lozenge effective. Pt reports abdominal pain is relieved. Cough, congestion, and sore throat have improved.
[2017-02-09] MEDS: OSELTAMIVIR PHOSPHATE 75 MG CAPSULE PO SCH ×2 (10:02→20:06)
[2017-02-09] MEDS: OXYMETAZOLINE NASAL 0.05% 15 ML SPRAY NS PRN ×2 (10:07→17:04)
[2017-02-09 12:30] VITALS: BP 130/86
[2017-02-09] MEDS: CLONIDINE HCL 0.1 MG TABLET PO PRN ×2 (13:19→20:06)
--- NOTE | 2017-02-09 13:23 | NUR ---
PRN Clonidine and Motrin Pt reports anxiety, agitation, and restlessness. B/P 130/86 and HR 89. He also reports mild abdominal from coughing r/t the flu. Coughing is minimal currently. PRN Clonidine and Motrin administered.
--- NOTE | 2017-02-09 14:23 | NUR ---
PRN Clonidine and Motrin reassessment PRN Clonidine and Motrin effective. Pt is lying in bed resting with eyes closed. Respirations even and unlabored. Bed is down with call light in reach.
[2017-02-09 16:00] VITALS: BP 95/61
--- NOTE | 2017-02-09 17:05 | NUR ---
PRN Tylenol, Afrin, and Robitussin Pt reports mild abdominal pain, nasal congestion, and mild productive cough with clear sputum. PRN Tylenol, Afrin, and Robitussin administered.
[2017-02-09] MEDS: LEVOFLOXACIN 750 MG TABLET PO SCH (17:09)
--- NOTE | 2017-02-09 18:05 | NUR ---
PRN Tylenol, Afrin, and Robitussin reassessment PRN Tylenol, Afrin, and Robitussin effective. Pt reports cough and nasal congestion are reduced, abdominal pain resolved.
--- NOTE | 2017-02-09 19:15 | NUR ---
END OF SHIFT Report provided to plant operator/shift supervisor nurse. Pt is lying in bed watching TV. He is a 41 yo male admitted to [facility] on 02/04 for ETOH dependence. He is A&O and ambulatory. NKA, full code status, and on a regular diet. PHM of sinus infection, anxiety, depression, and bipolar. On admission he reported drinking vodka "1 bottle" or beer 3 x 12 pack per day. He also took Ativan 2 mg per day. Ativan taper complete and he is scheduled for discharge tomorrow. He is currently being treated for influenza and is isolation precautions. Pt has remained afebrile throughout the day. PRN Clonidine, Motrin x2, Tylenol x2, Afrin nasal spray x2, Robitussin x2, Cepacol logenze, and Zyrtec administered. Pt is compliant with treatment. Last CIWA was 2. He drank 1100mL. Fall and seizure precautions in place. Bed is down with call light in reach.
--- NOTE | 2017-02-09 19:30 | NUR ---
START OF SHIFT Pt is a 41 y/o male admitted on 02/04/17 for ETOH and benzo dependence. Pt is full code, NKA, regular diet and on fall/seizure precautions. No reported seizure hx. Pt reports PMH of anxiety, depression, bipolar disorder and sinus infections. Pt finished an Ativan taper and is scheduled to be d/c tomorrow. Pt is positive for influenza and is on droplet precautions. Pt is afebrile at this time. Last CIWA 2 and PRN Tylenol, Robitussin, Motrin, Afrin, throat lozenge, Zyrtec and Clonidine administered during day shift. Pt complains of abdominal pain 6/10 d/t coughing, but reports improvement in cough. Pt also presents with sore throat and states he feels "Overall better from the flu." Pt also presents with anxiety, fatigue, mild sweats, agitation, increased HR and BP, difficulty sleeping, anhedonia and dysphoria. Medications due. Denies N/V/D. Denies chest pain or SOB. Respirations even and unlabored. Safety measures in place. Call light within reach. Will continue to monitor.
[2017-02-09 20:00] VITALS: BP 142/80
[2017-02-09] MEDS: SERTRALINE HCL 50 MG TABLET PO SCH (20:06)
--- NOTE | 2017-02-09 20:06 | NUR ---
PRN CLONIDINE, MOTRIN AND CEPACOL ADMINISTRATION Pt presents with anxiety, chills, sweats, abdominal pain 6/10 and sore throat. Requests throat lozenge. BP 142/80 and HR 118. Safety measures in place. Call light within reach. Will continue to monitor.
[2017-02-09] MEDS ORDERED: TRAZODONE 100 MG TABLET PO SCH (21:00)
--- NOTE | 2017-02-09 21:06 | NUR ---
PRN CLONIDINE, MOTRIN AND CEPACOL REASSESSMENT Pt has improvement in anxiety, chills and sweats. Abdominal pain is reportedly at tolerable level now and reports improvement in sore throat. Safety measures in place. Call light within reach. Will continue to monitor.
--- NOTE | 2017-02-10 | NUR ---
CIWA DEFERRED AND VITALS REFUSED Pt laying in bed with eyes closed, CIWA deferred, to be assessed when pt is awake per orders. Vitals refused. Respirations 16, even and unlabored. Safety measures in place. Call light within reach. Will continue to monitor.
[2017-02-10] MEDS: ACETAMINOPHEN 325 MG TABLET PO PRN (06:04)
[2017-02-10] MEDS: BENZOCAINE/MENTH/CETYLPYRD LOZENGE MM PRN (06:04)
[2017-02-10] MEDS: OXYMETAZOLINE NASAL 0.05% 15 ML SPRAY NS PRN (06:05)
--- NOTE | 2017-02-10 06:05 | NUR ---
PRN AFRIN, TYLENOL AND CEPACOL ADMINISTRATION Pt reports nasal congestion, pain 7/10 in abdomen that worsens with cough and a sore throat. Safety measures in place. Call light within reach. Will continue to monitor.
--- NOTE | 2017-02-10 07:05 | NUR ---
PRN AFRIN, TYLENOL AND CEPACOL REASSESSMENT Pt reports nasal congestion improved, sore throat ceased and abdominal pain improved to tolerable level. Safety measures in place. Call light within reach. Will continue to monitor.
--- NOTE | 2017-02-10 07:15 | NUR ---
END OF SHIFT Pt is a 41 y/o male admitted on 02/04/17 for ETOH and benzo dependence. Pt is full code, NKA, regular diet and on fall/seizure precautions. No reported seizure hx. Pt reports PMH of anxiety, depression, bipolar disorder and sinus infections. Pt finished an Ativan taper and is scheduled to be d/c today. Pt was positive for influenza and is on droplet precautions. Pt is afebrile at this time. Pt complained of abdominal pain 6/10 d/t coughing, but reports improvement in cough. Pt also presents with sore throat and states he feels "Overall better from the flu." Pt also presented with anxiety, fatigue, mild sweats, agitation, increased HR and BP, difficulty sleeping, anhedonia and dysphoria. Scheduled medications and PRN Clonidine, Motrin, Cepacol x 2, Tylenol and Afrin administered, effective in S/S of withdrawal and influenza as verbalized by pt. Last CIWA 3 at 1999. Pt slept 9 hours. Intake 400 ml, void x 1, stool x 0. Safety measures in place. Call light within reach. Pts needs have been met. Endorsed to day shift nurse.
--- NOTE | 2017-02-10 07:49 | NUR ---
Start of Shift Notes: Received patient in his room. Alert and verbally responsive. Oriented x 4 Able to make his needs known. Respirations even and unlabored. No SOB noted. Skin warm and dry to touch. Abdomen soft and non-distended with (+) BS in all 4 quadrants. No complains of N/V/D or abdominal discomfort noted. Bladder non-distended. Voids independently. Ambulatory ad selma with steady gait. Patient is a 41 year old male admitted for ETOH and BZO dependence who was placed on a 4-day Ativan taper as ordered and completed. No adverse reactions noted. Has past medical hx of anxiety, depression, sinus infection, bipolar disorder and appendectomy. NKA. FULL CODR. Regular diet. On fall and seizure precautions. Educated patient on the discharge process. Patient verbalized good understanding. On isolation due to influenza. Education provided. Will continue to monitor.
[2017-02-10 08:00] VITALS: BP 131/89
[2017-02-10] MEDS: MULTIVITAMINS,THERAPEUTIC TABLET PO SCH (08:53)
[2017-02-10] MEDS: OSELTAMIVIR PHOSPHATE 75 MG CAPSULE PO SCH (08:53)
[2017-02-10] MEDS: FLUTICASONE PROP NASAL SPRAY 16 GM BOTTLE NS SCH (08:54)
[2017-02-10] MEDS: FOLIC ACID 1 MG TABLET PO SCH (08:54)
[2017-02-10] MEDS: THIAMINE HCL 100 MG TABLET PO SCH (08:54)
--- NOTE | 2017-02-10 09:30 | NUR ---
Discharged: Patient is afebrile. VS stable. CIWA 3 due to anxiety. Dischage instructions provided to the patient. Patient verbalized good understanding. Tamiflu given as ordered. No adverse reactions noted. All clothings, belongings and valuables were returned to the patient. ECONOMIC SPECIALIST cabinet checked. Returned razor. Home meds returned to the patient with no narcotic. Picked up by [facility] to be transported to [facility]. Patient left the unit in stable condition.
== END 2017-02-10 09:30 | disposition other institution (70) | DRG 895 ==
LOC: SRC 02-04 00:08
PROVIDERS: ADMIT Internal Medicine; ATTEND Internal Medicine
PROC: HZ2ZZZZ Detoxification Services for Substance Abuse Treatment (ICD-10-PCS; principal; 2017-02-04)
PROC: HZ41ZZZ Group Counseling for Substance Abuse Treatment, Behavioral (ICD-10-PCS; 2017-02-05)
PROC: HZ31ZZZ Individual Counseling for Substance Abuse Treatment, Behavioral (ICD-10-PCS; 2017-02-07)
DX: F10.230 Alcohol dependence with withdrawal, uncomplicated (principal); I15.9 Secondary hypertension, unspecified; F13.10 Sedative, hypnotic or anxiolytic abuse, uncomplicated; F17.210 Nicotine dependence, cigarettes, uncomplicated; F41.9 Anxiety disorder, unspecified; Y90.9 Presence of alcohol in blood, level not specified; Z81.1 Family history of alcohol abuse and dependence; Z82.49 Family history of ischemic heart disease and other diseases of the circulatory system; M10.9 Gout, unspecified; F32.9 Major depressive disorder, single episode, unspecified; R07.82 Intercostal pain; J11.1 Influenza due to unidentified influenza virus with other respiratory manifestations; J01.90 Acute sinusitis, unspecified
CPT/HCPCS: 36415; 70030-TC; 71010; 80307; 83690; 83735; 84443; 85025; 86403; 86580; 86592; 86705; 86803; 87040; 87070; 87340; 87400; 87806; 90686; 90732; G0480; J3411; J3535; Q0144; Q0163